=== PATIENT | male | born 2000 | race Caucasian/White ===

== ENCOUNTER → 2023-02-17 | Outpatient (CLI) | payer SELFPAY ==
[2023-02-17 15:39] LABS: Absolute Lymphocyte Count 1.72 X10^3/uL (0.83-4.51); Basophil# 0.07 X10^3/uL; Basophil% 1.1 % (0-1); Eosinophil# 0.08 X10^3/uL; Eosinophils% 1.3 % (0-5); Hematocrit 48.7 % (40-54); Hemoglobin 15.9 g/dL (13.0-16.5); Lymphocyte # 1.72 X10^3/ul (0.83-4.51); Lymphocyte % 27.1 % (19-41); Mean Corp Hgb Conc 32.6 g/dL (32-36); Mean Corpuscular Hgb 27.4 pg (27.0-32.0); Mean Corpuscular Volume 83.8 fL (80-94); Mean Platelet Vol. 10.3 fl (6.2-12.0); Monocyte# 0.44 X10^3/uL; Monocyte% 6.9 % (0-10); NRBC Flagged by Analyzer 0 % (0-5); Neutrophil # 4.03 X10^3/uL (2.7-7.7); Neutrophil % 63.4 % (47-70); Platelet Count 310 K/mm3 (150-450); RBC Distribution Width CV 12.3 % (11.6-14.6); RBC Distribution Width SD 37.2 fl (35.1-43.9); Red Blood Count 5.81 M/mm3 (4.6-6.2); White Blood Count 6.4 K/mm3 (4.4-11.0)
[2023-02-17 16:00] LABS: CRP < 2.90 mg/L (0.0-3.0); Rheumatoid Factor < 10.0 IU/mL (<15); Uric Acid 6.4 mg/dL (3.5-7.2)
[2023-02-17 16:13] LABS: Total Cells Counted 6.4 (MANUAL DIFF)
[2023-02-17 16:14] LABS: Erythrocyte Sedimentation Rate 1 mm/hr (0-20)
[2023-02-19 12:09] LABS: ANTINUCLEAR ANTIBODIES DIRECT Negative (Negative)
== END | disposition home or self-care (01) ==
PROVIDERS: PCP Family Medicine; Referring Provider Student in an Organized Health Care Education/Training Program; Visit Provider Student in an Organized Health Care Education/Training Program
DX: M65.812 Other synovitis and tenosynovitis, left shoulder (principal)
CPT/HCPCS: 36415; 84550; 85025; 85652; 86038; 86140; 86431

== ENCOUNTER → 2023-03-20 | Outpatient (CLI) | payer SELFPAY ==
--- NOTE | 2023-03-19 12:30 | SYN_PTH ---
PATHOLOGY RESULTS PATIENT: BRADLEY HOWARD [facility][id number] AGE/SX: 23/M ROOM: RE03/20/[address]: Dr. Eric Lee DO : 2000 BED: DIS: 03/20/2023 SPEC #: [id number] RECD: 03/20/23 15:56 STATUS: BROCK RESatish #: [id number] NIHARIKA: 03/19/23 12:[address]: Eric Lee DEPT: SURGICAL PATHOLOGY RECD BY: Trista Galaviz ENTERED: 03/21/23 08:14 SP TYPE: SYNOVIUM OTHR DR: Dr. 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 AM:madelyn 03/24/2023 MICROSCOPIC DESCRIPTION Slides are reviewed. GROSS DESCRIPTION Received in fixative is one container labeled with the patient's name and designated left shoulder synovium. The specimen consists of two pieces of le-light brown soft tissue that in aggregate measure 2.0 x 0.5 x 0.1 cm. The entire specimen is submitted in one cassette. / SJ:madelyn 03/21/2023 TC:3 CPT:
== END | disposition home or self-care (01) ==
LOC: LABSPEC 15:01
PROVIDERS: PCP Family Medicine; Referring Provider Student in an Organized Health Care Education/Training Program; Visit Provider Student in an Organized Health Care Education/Training Program
DX: M65.9 Synovitis and tenosynovitis, unspecified (principal)
CPT/HCPCS: 88305